=== PATIENT | male | born 1970 | race African-American/Black ===

== ENCOUNTER 2021-12-07 18:39 | Emergency (ER) | payer MEDICAID, MEDICARE ==
[~2021-12-07] VITALS: Ht 165.1 cm; Wt 73.0 kg
[2021-12-07] MEDS ORDERED: IBUPROFEN 600MG TABLET PO ONE (19:15)
[2021-12-07] MEDS ORDERED: IBUP-2029 MT (20:20)
[2021-12-07] MEDS ORDERED: CYCL10TA21 MT (20:20)
[2021-12-07 20:45] VITALS: BP 138/88
== END 2021-12-07 20:45 | disposition home or self-care (01) ==
LOC: ER 18:54
DX: S30.0XXA Contusion of lower back and pelvis, initial encounter (principal); Y04.0XXA Assault by unarmed brawl or fight, initial encounter; Y93.89 Activity, other specified; Y92.89 Other specified places as the place of occurrence of the external cause; Y99.8 Other external cause status
CPT/HCPCS: 72100; 99283

== ENCOUNTER 2022-06-18 22:46 | Emergency (ER) | payer MEDICAID ==
[~2022-06-18] VITALS: Ht 165.1 cm; Wt 77.0 kg
[~2022-06-18 22:46] MED LIST: CYCL10TA21 MT; IBUP-2029 MT
[2022-06-18 22:48] VITALS: BP 143/82
[2022-06-19] MEDS ORDERED: IBUP-2028 MT (02:13)
== END 2022-06-19 02:30 | disposition home or self-care (01) ==
LOC: ER 22:46
DX: S83.92XA Sprain of unspecified site of left knee, initial encounter (principal); S09.90XA Unspecified injury of head, initial encounter; W01.0XXA Fall on same level from slipping, tripping and stumbling without subsequent striking against object, initial encounter; Y93.01 Activity, walking, marching and hiking; Y92.89 Other specified places as the place of occurrence of the external cause; Y99.8 Other external cause status
CPT/HCPCS: 73560; 99284